=== PATIENT | female | born 1970 | race Caucasian/White ===

== ENCOUNTER → 2021-01-16 11:58 | Outpatient (CLI) | payer OTHER, SELFPAY ==
[2021-01-16 18:53] LABS: Hematocrit 40.2 % (36-46); Hemoglobin 13.8 g/dL (12.0-16.0); Mean Corpuscular HGB Conc 34.3 % (30-36); Mean Corpuscular Hemoglobin 29.8 PG (26-34); Mean Corpuscular Volume 86.9 fL (80-100); Platelet Count 279 X10^3/uL (150-400); Red Blood Cell Count 4.63 X10^6/uL (4.0-5.2); Red Cell Distribution Width 13.6 % (11.6-14.8); White Blood Cell Count 8.1 X10^3/uL (4.5-11.0)
[2021-01-16 19:38] LABS: Appearance Urine UA CLEAR; Bilirubin Urine UA NEGATIVE (NEGATIVE); Color Urine UA YELLOW; Glucose Urine UA NEGATIVE (Negative); Ketones Urine UA NEGATIVE (NEGATIVE); Leukocyte Esterase Urine UA NEGATIVE (NEGATIVE); Nitrite Urine UA NEGATIVE (Negative); Occult Blood Urine UA TRACE-LYSED (Negative); Protein Urine UA NEGATIVE (Negative); Urobilinogen Urine UA 0.2 E.U./dL (0.2)
[2021-01-16 20:02] LABS: Neutrophils Absolute Manual 4374 /uL (3000-5900); Total Cells Counted 100
[2021-01-16 20:03] LABS: RBC Morphology Normal Morphology
== END ==
PROVIDERS: PCP Physician Assistant Medical; Referring Provider Physician Assistant Medical; Visit Provider Physician Assistant Medical
DX: N93.9 Abnormal uterine and vaginal bleeding, unspecified (principal)
CPT/HCPCS: 81003; 85025

== ENCOUNTER → 2021-01-17 09:54 | Outpatient (CLI) | payer OTHER, SELFPAY ==
[2021-01-17 19:34] LABS: Appearance Urine UA CLEAR; Bilirubin Urine UA NEGATIVE (NEGATIVE); Color Urine UA YELLOW; Glucose Urine UA NEGATIVE (Negative); Ketones Urine UA NEGATIVE (NEGATIVE); Leukocyte Esterase Urine UA NEGATIVE (NEGATIVE); Nitrite Urine UA NEGATIVE (Negative); Occult Blood Urine UA TRACE-LYSED (Negative); Protein Urine UA NEGATIVE (Negative); Urobilinogen Urine UA 0.2 E.U./dL (0.2)
[2021-01-17 20:11] LABS: Bacteria Urine None Seen; Calcium Oxalate Crystals Urine Few; Culture Indicated Urine Cult Not Indicated; RBC Urine None Seen (0-5/HPF); Squamous Epithelial Cell Urine 0-1 /HPF (0-5/HPF); WBC Urine None Seen (0-5/HPF)
[2021-01-17 20:56] LABS: Urine N gonorrhoeae NOT DETECTED
[2021-01-17 21:29] LABS: Urine Chlamydia NOT DETECTED
== END ==
PROVIDERS: PCP Physician Assistant Medical; Visit Provider Physician Assistant Medical
DX: N93.9 Abnormal uterine and vaginal bleeding, unspecified (principal); R31.9 Hematuria, unspecified
CPT/HCPCS: 81001; 87491; 87591

== ENCOUNTER → 2021-01-28 14:07 | Outpatient (CLI) | payer OTHER, SELFPAY ==
--- NOTE | 2021-01-28 14:09 | DI.US.S_ITS ---
PROCEDURE: US PELVIC COMPLETE INDICATIONS: cramps/vag bleed TECHNIQUE: Real-time scanning was performed of the pelvic organs, with image documentation. Additional endovaginal scanning was necessary due to incomplete visualization of the adnexal and endometrial structures by transabdominal scanning. COMPARISON: None. FINDINGS: Uterus: Uterus is anteverted and normal in size at 8.8 x 4.4 cm. The myometrium is slightly heterogenous. The endometrium measures 10 mm combined thickness. Ovaries: The right ovary measures 3.6 x 3.0 x 2.9 cm. A right ovarian cyst measures 2.7 x 2.5 x 2.6 cm. The left ovary is not well visualized but measures 1.7 x 0.9 x 1.3 cm. The ovaries have a normal sonographic appearance. Less than 12 follicles can be seen in each ovary. No adnexal masses are seen. Other: No pathologic free abdominal or pelvic fluid. IMPRESSION: 1. Right ovarian cyst. 2. No acute pelvic abnormality. We strive to produce accurate, complete, and clear reports of imaging services. To assist us in improving patient care, this report was composed using standard report templates and voice recognition software. Therefore, it may contain abnormal punctuation, insertions and/or omissions. Occasional wrong-word or sound-alike substitutions may occur. Though we review the report and make efforts to correct it, we do recommend that the report be read carefully in proper context to recognize any text inaccuracies. Dictated by: Julio Granados M.D. on 01/28/2021 at 15:31 Approved by: Julio Granados M.D. on 01/28/2021 at 15:35
== END ==
PROVIDERS: PCP Physician Assistant Medical; Referring Provider Physician Assistant Medical; Visit Provider Physician Assistant Medical
DX: N93.9 Abnormal uterine and vaginal bleeding, unspecified (principal); N83.201 Unspecified ovarian cyst, right side; M54.9 Dorsalgia, unspecified; R31.9 Hematuria, unspecified
CPT/HCPCS: 76830; 76856

== ENCOUNTER → 2021-05-07 15:51 | Outpatient (CLI) | payer OTHER, SELFPAY ==
[2021-05-07 16:36] LABS: COVID19 -Nasal RAPID Negative (Negative)
== END ==
PROVIDERS: PCP Physician Assistant Medical; Visit Provider Obstetrics & Gynecology
DX: Z01.812 Encounter for preprocedural laboratory examination (principal); Z20.822 Contact with and (suspected) exposure to COVID-19
CPT/HCPCS: 87635

== ENCOUNTER 2021-05-08 09:46 | Day surgery (SDC) | payer OTHER, SELFPAY ==
[2021-05-06 09:31] VITALS: BMI 34.7
[2021-05-08] VITALS (7 sets, daily range): BP systolic 113–145; BP diastolic 61–88; PULSE 64–94; RESP 13–85; TEMP 36.1–36.7; O2SAT 95–99; BMI 34.7
--- NOTE | 2021-05-08 | PATH_ITS ---
[facility] Accession Number: [id number] . 01 Material submitted: . endometrium - POLYP AND ENDOMETRIAL CURETTING . 02 Diagnosis: Polyp and Endometrial Curetting: Benign endometrial polyp. Separate fragments of endometrium with features of glandular and stromal breakdown. No evidence of neoplasia or atypical hyperplasia. [facility] 05/20/2021 0955 Local . 02 Electronically signed: . Jessica Diaz MD, Pathologist NPI- [id number] . 01 Gross description: . Received in formalin, labeled with the patient's name and designated 1. Polyp and endometrial curettings, is a 1.5 x 1.3 x 0.4 cm portion of red-zuniga, glistening, polypoid tissue, inked black at the presumed margin, and a separate 2.0 x 1.5 x 0.2 cm aggregate of red-zuniga, friable tissue fragments and mucohemorrhagic material. The tissue is entirely submitted as follows: A1: Polypoid tissue. A2: Aggregate of remaining tissue. (ALLA:[id number]) /[facility] 05/17/2021 1323 Local . 02 Pathologist provided ICD-10: N95.0, N84.0 . 02 CPT . 923705 Specimen Comment: A courtesy copy of this report has been sent to [phone] Specimen Comment: [id number] Performed at: 01 [facility] [address] [id number] MD Blair Mireles MD Phone: [phone] Performed at: 02 [facility] [address] [place], [place] [id number] MD Jessica Diaz MD Phone: [phone]
[2021-05-08] MEDS: LACTATED RINGERS 1,000 ML 42 ML IV (10:33)
--- NOTE | 2021-05-08 12:06 | PM.HP.1 ---
History of Present Illness History of Present Illness Date Patient Seen: 05/08/21 Time Patient Seen: 12:06 Chief complaint: [facility] [place] Narrative: Patient is a 50-year-old 2 para 2 who presents for a D&C hysteroscopy due to postmenopausal bleeding and endometrial hyperplasia. Patient History Medical History (Updated 03/09/21 @ 14:02 by Althea Alberto MD) Chicken pox (~1974) Eczema (~1988) Gallstones (~2017) Genital warts Psoriasis (~1988) Surgical History (Updated 03/09/21 @ 14:01 by Althea Alberto MD) [place] teeth extracted Family & Social History Family History (Updated 02/11/21 @ 22:25 by Evette Baires) Mother Hypertension Hyperlipidemia Thyroid disease Grandfather Parkinson's disease Alzheimer's dementia Grandmother No problems noted. Grandfather Brianne Gehrig's disease Social History: household members family Tobacco & Substance use: Smoking Status Former smoker alcohol intake frequency holiday/special occasion Substance Use Type does not use Meds Home Medications and Allergies Home Medications Medication Instructions Recorded Confirmed Type No Known Home Medications 02/12/21 05/06/21 History Allergies Allergy/AdvReac Type Severity Reaction Status Date / Time ciprofloxacin [From Cipro] Allergy Unknown Verified 05/08/21 10:20 Exam Vital Signs (past 8 hours): - 05/08/21 10:21 Temperature 97.9 F Pulse Rate 94 H Respiratory Rate 16 Blood Pressure 140/83 Pulse Oximetry 98 Oxygen Delivery Method Room Air Narrative Exam Narrative: HEENT: No thyromegaly, no anterior cervical or supraclavicular lymphadenopathy. Lungs:Clear to auscultation bilaterally, no wheezes. Cardiovascular: Regular rate and rhythm, no murmurs, rubs, or gallops. Abdomen: No scars. No hepatosplenomegaly. No masses palpable. External genitalia: Normal Vagina: Normal Cervix: Normal Bimanual exam: 8 Week size anteverted uterus. Mobile. Extremities: No edema Assessment & Plan Assessment & Plan narrative: Assessment: 50-year-old 2 para 2 with postmenopausal bleeding and endometrial hyperplasia Plan: D&C hysteroscopy The risks, benefits, and alternatives to the procedure were explained to the patient. The risks including bleeding, infection, and uterine perforation. She understands these risks and agrees to proceed. A full par Q was held and consent form was signed. COVID-19 COVID-19 status: Negative Result date/Date tested (Pos, Neg/Pending): 05/07/21 Time Spent With Patient Time with patient: less than 30 minutes Critical Care time: I spent a total of [] minutes of critical care time on this patient's care today; this time is exclusive of procedural time.
--- NOTE | 2021-05-08 12:08 | PM.PREOP ---
Pre-operative Note COVID-19 COVID-19 status: Negative Result date/Date tested (Pos, Neg/Pending): 05/07/21 Criteria for continued procedure: Non-surgical alternatives not available or appropriate per current SOC Interval Note History & Physical reviewed/Exam performed by Physician: Yes Changes to H&P: No H&P completed within 30 days and has changed as indicated here:: 05/08/21
--- NOTE | 2021-05-08 12:14 | SUR.OPER ---
Lithotomy on padded OR bed, head on pillow, arms secured on padded arm boards at <90 degrees abduction. Legs secured in padded yellow fins stirrups.
--- NOTE | 2021-05-08 12:57 | PM.GYNOP.1 ---
Operative Date/Time/Diagnoses Date of procedure: 05/08/21 Time of procedure: 12:57 Pre-op diagnosis: Postmenopausal bleeding Endometrial hyperplasia Post-op diagnosis: same Procedure & Clinicians Procedure: Procedures Operation Date: 05/08/21 11:45 <No data on this case meets the specified criteria> Indications: Postmenopausal bleeding Endometrial hyperplasia Surgeon: Althea Alberto Anesthesia Type: General (LMA) Operative Notes Findings: 7 week size anteverted uterus Both Fallopian tube ostia observed Pedunculated polyp arising from the right cornua Closure Type: not applicable Specimen(s): endometrial curettings and endometrial polyp Estimated blood loss (mL): 5 Blood products transfused: none Procedure in detail: After informed consent was obtained, the patient was taken to the operating room where she was placed in the dorsal supine position. After adequate LMA general anesthesia was achieved, she was placed in the dorsal lithotomy position, and prepped and draped in the usual sterile fashion. A time-out was performed. A bivalve speculum was placed into the vagina. A single-tooth tenaculum was placed on the anterior lip of the cervix. The cervical os was sequentially dilated until the hysteroscope could pass easily into the endometrial cavity. Initial inspection with the hysteroscope revealed a polyp on a very thin stalk originating from the right cornua of the uterus. The hysteroscope was removed. The base of the polyp was grasped with a polyp forceps. The polyp was removed in 1 piece. The hysteroscope was replaced in the uterus. There was no bleeding noted. The full polyp was removed. The instruments were removed from the uterus. The single-tooth tenaculum was removed from the anterior lip of the cervix. The bivalve speculum was removed from the vagina. Sponge, lap, and instrument counts were correct x2. Patient tolerated the procedure well, and was taken to PACU in stable condition. Complications: none Post-operative Condition: stable Disposition: PACU Plan for aftercare: Home after recovery
== END 2021-05-08 14:05 | disposition home or self-care (01) ==
PROVIDERS: PCP Physician Assistant Medical; Referring Provider Obstetrics & Gynecology; Visit Provider Obstetrics & Gynecology
PROC: 0UDB8ZZ Extraction of Endometrium, Via Natural or Artificial Opening Endoscopic (ICD-10-PCS; CPT 58558; principal; 2021-05-08 11:45)
DX: N84.0 Polyp of corpus uteri (principal)
CPT/HCPCS: 58558; J1100; J2250; J2405; J2704; J3010